=== PATIENT | female | born 2000 | race American Indian/Alaskan Native ===

== ENCOUNTER 2020-05-02 07:55 | Emergency (ER) | payer SELFPAY ==
[2020-05-02 08:03] VITALS: BP 124/80
--- NOTE | 2020-05-02 08:39 | Emergency Department Report ---
ED ENT HPI - General Chief complaint: Sore Throat Stated complaint: SWOLLEN THROAT Time Seen by Provider: 05/02/20 08:22 Source: patient Mode of arrival: Ambulatory Limitations: No Limitations - History of Present Illness Initial comments: This is a 19-year-old female nontoxic, well nourished in appearance, no acute signs of distress presents to the ED with c/o of sore throat. Patient describes sore throat as swallowing razer blades. Patient denies any fever, chills, headache, stiff neck, nausea, vomiting, chest pain, shortness of breath, numbness or tingling. Patient denies any drooling or hoarseness. Patient denies any allergies or significant past medical history. MD complaint: sore throat -: days(s) Location: throat Severity: mild Severity scale (0 -10): 8 Quality: aching Consistency: constant Improves with: none Worsens with: swallowing Associated Symptoms: pain with swallowing, sore throat. denies: fever, cough, gum swelling, toothache, tinnitus, hearing loss, discharge from ear, rhinorrhea - Related Data Previous Rx's Medication Instructions Recorded Last Taken Type Ibuprofen [Motrin] 600 mg PO Q8H PRN #30 tablet 01/14/20 Unknown Rx Ondansetron [Zofran Odt] 4 mg PO Q6HR PRN #20 tab.rapdis 01/14/20 Unknown Rx cephALEXin [Keflex] 500 mg PO Q8HR #30 cap 01/14/20 Unknown Rx Amoxicillin [Amoxicillin TAB] 875 mg PO BID #20 tablet 05/02/20 Unknown Rx Allergies Allergy/AdvReac Type Severity Reaction Status Date / Time aloe vera Allergy Hives Verified 01/14/20 01:34 ED Dental HPI - General Chief complaint: Sore Throat Stated complaint: SWOLLEN THROAT Time Seen by Provider: 05/02/20 08:22 Source: patient Mode of arrival: Ambulatory Limitations: No Limitations - Related Data Previous Rx's Medication Instructions Recorded Last Taken Type Ibuprofen [Motrin] 600 mg PO Q8H PRN #30 tablet 01/14/20 Unknown Rx Ondansetron [Zofran Odt] 4 mg PO Q6HR PRN #20 tab.rapdis 01/14/20 Unknown Rx cephALEXin [Keflex] 500 mg PO Q8HR #30 cap 01/14/20 Unknown Rx Amoxicillin [Amoxicillin TAB] 875 mg PO BID #20 tablet 05/02/20 Unknown Rx Allergies Allergy/AdvReac Type Severity Reaction Status Date / Time aloe vera Allergy Hives Verified 01/14/20 01:34 ED Review of Systems ROS: Stated complaint: SWOLLEN THROAT Other details as noted in HPI Comment: All other systems reviewed and negative Constitutional: denies: chills, fever Eyes: denies: eye pain, eye discharge, vision change ENT: throat pain. denies: ear pain Respiratory: denies: cough, shortness of breath, wheezing Cardiovascular: denies: chest pain, palpitations Endocrine: no symptoms reported Gastrointestinal: denies: abdominal pain, nausea, diarrhea Genitourinary: denies: urgency, dysuria, discharge Musculoskeletal: denies: back pain, joint swelling, arthralgia Skin: denies: rash, lesions Neurological: denies: headache, weakness, paresthesias Psychiatric: denies: anxiety, depression Hematological/Lymphatic: denies: easy bleeding, easy bruising ED Past Medical Hx - Past Medical History Previous Medical History?: No - Surgical History Past Surgical History?: No - Social History Smoking Status: Never Smoker Substance Use Type: Marijuana - Medications Home Medications: Home Medications Medication Instructions Recorded Confirmed Last Taken Type Ibuprofen [Motrin] 600 mg PO Q8H PRN #30 tablet 01/14/20 Unknown Rx Ondansetron [Zofran Odt] 4 mg PO Q6HR PRN #20 tab.rapdis 01/14/20 Unknown Rx cephALEXin [Keflex] 500 mg PO Q8HR #30 cap 01/14/20 Unknown Rx Amoxicillin [Amoxicillin TAB] 875 mg PO BID #20 tablet 05/02/20 Unknown Rx ED Physical Exam - General Limitations: No Limitations General appearance: alert, in no apparent distress - Head Head exam: Present: atraumatic, normocephalic - Eye Eye exam: Present: normal appearance - Expanded ENT Exam Expanded Ear exam: Present: normal external inspection Mouth exam: Present: normal external inspection, tongue normal. Absent: drooling, trismus, muffled voice Teeth exam: Present: normal inspection Throat exam: Positive: tonsillar erythema, other (uvula midline). Negative: tonsillomegaly, tonsillar exudate, R peritonsillar mass, L peritonsillar mass - Neck Neck exam: Present: normal inspection, full ROM. Absent: tenderness, meningismus, lymphadenopathy - Respiratory Respiratory exam: Absent: respiratory distress - Cardiovascular Cardiovascular Exam: Present: regular rate - Extremities Exam Extremities exam: Present: full ROM - Back Exam Back exam: Present: full ROM - Neurological Exam Neurological exam: Present: alert, oriented X3, normal gait - Psychiatric Psychiatric exam: Present: normal affect, normal mood - Skin Skin exam: Present: warm, dry, intact, normal color. Absent: rash ED Course Vital Signs 05/02/20 07:59 Temperature 98.5 F Pulse Rate 98 H Respiratory 16 Rate Blood Pressure 124/80 O2 Sat by Pulse 98 Oximetry - Reevaluation(s) Reevaluation #1: 05/02/20 08:37 Patient is speaking in full sentences with no signs of distress noted. ED Medical Decision Making - Medical Decision Making Vital signs are stable. Patient was examined by me patient is stable. Patient was instructed to follow-up with a primary care doctor in 3-5 days or if symptoms worsen and continue return to emergency room as soon as possible. At time of discharge, the patient does not seem toxic or ill in appearance. No acute signs of distress noted. Patient agrees to discharge treatment plan of care. No further questions noted by the patient. Critical care attestation.: If time is entered above; I have spent that time in minutes in the direct care of this critically ill patient, excluding procedure time. ED Disposition Clinical Impression: Pharyngitis Qualifiers: Pharyngitis/tonsillitis etiology: unspecified etiology Qualified Code(s): J02.9 - Acute pharyngitis, unspecified Disposition: DC- TO HOME OR SELFCARE Is pt being admited?: No Does the pt Need Aspirin: No Condition: Stable Instructions: Pharyngitis, [id number] Additional Instructions: Follow-up with a primary care doctor in 3-5 days or if symptoms worsen and continue return to emergency room as soon as possible. Prescriptions: Amoxicillin [Amoxicillin TAB] 875 mg PO BID #20 tablet Referrals: PRIMARY CAREMD [Referring] - 3-5 Days CLEMENCIA MUNGUIA MD [Staff Physician] - 3-5 Days Forms: Work/School Release Form(ED)
== END 2020-05-02 08:45 | disposition home or self-care (01) ==
LOC: ED 07:55
DX: J02.9 Acute pharyngitis, unspecified (principal); F12.90 Cannabis use, unspecified, uncomplicated; Z79.899 Other long term (current) drug therapy; Z91.048 Other nonmedicinal substance allergy status
CPT/HCPCS: 99281

== ENCOUNTER 2020-05-04 10:19 | Emergency (ER) | payer SELFPAY ==
[2020-05-04 11:04] VITALS: BP 117/82
[2020-05-04] MEDS ORDERED: PENICILLIN G BENZATHINE 1.2 MILLION UNIT/2 ML INJ IM ONE (12:37)
[2020-05-04] MEDS ORDERED: dexAMETHasone 20 MG/5 ML VIAL IM ONE (12:37)
--- NOTE | 2020-05-04 12:38 | Emergency Department Report ---
ED ENT HPI - General Chief complaint: Sore Throat Stated complaint: EAR BLEEDING/SOB/THROAT Time Seen by Provider: 05/04/20 12:28 Source: patient Mode of arrival: Ambulatory Limitations: No Limitations - History of Present Illness Initial comments: Patient is a 19-year-old female presents emergency room with complaints of a sore throat that began a week ago. She has associated pain with swallowing but is still able to tolerate p.o. intake. she was evaluated in the emergency department 2 days ago and started on amoxicillin but she states that it is not improving her symptoms. She states that the swelling feels worse. She states that she is also been having some discomfort in the right ear and feels like the ear is bleeding but she has been cleaning her ears with Q-tips. She denies any fever, vomiting, diarrhea, cough, shortness of breath. No past medical history. No allergies to medications. Last menstrual cycle last month. She denies any abdominal pain or vaginal bleeding. - Related Data Previous Rx's Medication Instructions Recorded Last Taken Type Ibuprofen [Motrin] 600 mg PO Q8H PRN #30 tablet 01/14/20 Unknown Rx Ondansetron [Zofran Odt] 4 mg PO Q6HR PRN #20 tab.rapdis 01/14/20 Unknown Rx cephALEXin [Keflex] 500 mg PO Q8HR #30 cap 01/14/20 Unknown Rx Amoxicillin [Amoxicillin TAB] 875 mg PO BID #20 tablet 05/02/20 Unknown Rx Amoxicillin/Potassium Clav 1 each PO BID 10 Days #20 tablet 05/04/20 Unknown Rx [Augmentin 875-125 Tablet] Loratadine [Claritin] 10 mg PO DAILY #30 tablet 05/04/20 Unknown Rx Nystas/Diphen/Xyl Visc/Mylanta 30 ml MM Q4H PRN #300 ml 05/04/20 Unknown Rx [Magic Mouthwash] Allergies Allergy/AdvReac Type Severity Reaction Status Date / Time aloe vera Allergy Hives Verified 01/14/20 01:34 ED Dental HPI - General Chief complaint: Sore Throat Stated complaint: EAR BLEEDING/SOB/THROAT Time Seen by Provider: 05/04/20 12:28 Source: patient Mode of arrival: Ambulatory Limitations: No Limitations - Related Data Previous Rx's Medication Instructions Recorded Last Taken Type Ibuprofen [Motrin] 600 mg PO Q8H PRN #30 tablet 01/14/20 Unknown Rx Ondansetron [Zofran Odt] 4 mg PO Q6HR PRN #20 tab.rapdis 01/14/20 Unknown Rx cephALEXin [Keflex] 500 mg PO Q8HR #30 cap 01/14/20 Unknown Rx Amoxicillin [Amoxicillin TAB] 875 mg PO BID #20 tablet 05/02/20 Unknown Rx Amoxicillin/Potassium Clav 1 each PO BID 10 Days #20 tablet 05/04/20 Unknown Rx [Augmentin 875-125 Tablet] Loratadine [Claritin] 10 mg PO DAILY #30 tablet 05/04/20 Unknown Rx Nystas/Diphen/Xyl Visc/Mylanta 30 ml MM Q4H PRN #300 ml 05/04/20 Unknown Rx [Magic Mouthwash] Allergies Allergy/AdvReac Type Severity Reaction Status Date / Time aloe vera Allergy Hives Verified 01/14/20 01:34 ED Review of Systems ROS: Stated complaint: EAR BLEEDING/SOB/THROAT Other details as noted in HPI Comment: All other systems reviewed and negative ED Past Medical Hx - Past Medical History Previous Medical History?: No - Surgical History Past Surgical History?: No - Social History Smoking Status: Never Smoker Substance Use Type: None - Medications Home Medications: Home Medications Medication Instructions Recorded Confirmed Last Taken Type Ibuprofen [Motrin] 600 mg PO Q8H PRN #30 tablet 01/14/20 Unknown Rx Ondansetron [Zofran Odt] 4 mg PO Q6HR PRN #20 tab.rapdis 01/14/20 Unknown Rx cephALEXin [Keflex] 500 mg PO Q8HR #30 cap 01/14/20 Unknown Rx Amoxicillin [Amoxicillin TAB] 875 mg PO BID #20 tablet 05/02/20 Unknown Rx Amoxicillin/Potassium Clav 1 each PO BID 10 Days #20 tablet 05/04/20 Unknown Rx [Augmentin 875-125 Tablet] Loratadine [Claritin] 10 mg PO DAILY #30 tablet 05/04/20 Unknown Rx Nystas/Diphen/Xyl Visc/Mylanta 30 ml MM Q4H PRN #300 ml 05/04/20 Unknown Rx [Magic Mouthwash] ED Physical Exam - General Limitations: No Limitations General appearance: alert, in no apparent distress - Head Head exam: Present: atraumatic, normocephalic - Eye Eye exam: Present: normal appearance - ENT ENT exam: Present: mucous membranes moist, TM's normal bilaterally, normal external ear exam, other (bilateral tonsillar hypertrophy with exudates, uvula is midline, no uvular edema or devation, no trismus, no tongue elevation, no muffled voice) - Neck Neck exam: Present: lymphadenopathy (small anterior cervical LAD bilaterally) - Respiratory Respiratory exam: Present: normal lung sounds bilaterally. Absent: respiratory distress, wheezes, rales, rhonchi, stridor, chest wall tenderness, accessory muscle use, decreased breath sounds, prolonged expiratory - Cardiovascular Cardiovascular Exam: Present: regular rate, normal rhythm, normal heart sounds. Absent: systolic murmur, diastolic murmur, rubs, gallop - Neurological Exam Neurological exam: Present: alert, oriented X3 - Psychiatric Psychiatric exam: Present: normal affect, normal mood - Skin Skin exam: Present: warm, dry, intact ED Course Vital Signs 05/04/20 11:03 Temperature 99.4 F Pulse Rate 88 Respiratory 18 Rate Blood Pressure 117/82 [Left] O2 Sat by Pulse 99 Oximetry ED Medical Decision Making - Medical Decision Making Patient is a 19-year-old female presents emergency room with complaints of a sore throat that began a week ago. She has associated pain with swallowing but is still able to tolerate p.o. intake. she was evaluated in the emergency department 2 days ago and started on amoxicillin but she states that it is not improving her symptoms. She states that the swelling feels worse. She states that she is also been having some discomfort in the right ear and feels like the ear is bleeding but she has been cleaning her ears with Q-tips. She denies any fever, vomiting, diarrhea, cough, shortness of breath. No past medical history. No allergies to medications. Last menstrual cycle last month. She denies any abdominal pain or vaginal bleeding. vitals are normal. on exam:bilateral tonsillar hypertrophy with exudates, uvula is midline, no uvular edema or devation, no trismus, no tongue elevation, no muffled voice, small anterior cervical LAD bilaterally, normal TMs and canals bilaterally. Examination appears consistent with tonsillitis. No signs of peritonsillar abscess at this time. Patient given IM dexamethasone and penicillin G benzathine while in the emergency department. Patient given prescription for Augmentin, Claritin, Magic mouthwash. Advised patient Please stop taking amoxicillin and begin taking Augmentin. Please use warm salt water gargles 3 times a day. Throw away your toothbrush. Increase your fluid intake over the next several days. May alternate Tylenol or ibuprofen as needed for discomfort. May use [id number] throat spray or throat lozenges. Follow-up with your primary care doctor. Follow-up with a ENT doctor. Return to emergency room for any new or worsening symptoms. Critical care attestation.: If time is entered above; I have spent that time in minutes in the direct care of this critically ill patient, excluding procedure time. ED Disposition Clinical Impression: Tonsillitis Disposition: - TO HOME OR SELFCARE Is pt being admited?: No Does the pt Need Aspirin: No Condition: Stable Instructions: Tonsillitis Additional Instructions: Please stop taking amoxicillin and begin taking Augmentin. Please use warm salt water gargles 3 times a day. Throw away your toothbrush. Increase your fluid intake over the next several days. May alternate Tylenol or ibuprofen as needed for discomfort. May use [id number] throat spray or throat lozenges. Follow-up with your primary care doctor. Follow-up with a ENT doctor. Return to emergency room for any new or worsening symptoms. Prescriptions: Amoxicillin/Potassium Clav [Augmentin 875-125 Tablet] 1 each PO BID 10 Days #20 tablet Loratadine [Claritin] 10 mg PO DAILY #30 tablet Nystas/Diphen/Xyl Visc/Mylanta [Magic Mouthwash] 30 ml MM Q4H PRN #300 ml PRN Reason: sore throat Referrals: CLEMENCIA MUNGUIA MD [Staff Physician] - 2-3 Days SEBAS HAINES MD [Staff Physician] - 2-3 Days Time of Disposition: 12:42 Print Language: MOHAWK
== END 2020-05-04 13:11 | disposition home or self-care (01) ==
LOC: ED 10:19
DX: J03.90 Acute tonsillitis, unspecified (principal); Z79.1 Long term (current) use of non-steroidal anti-inflammatories (NSAID); Z79.2 Long term (current) use of antibiotics; Z79.899 Other long term (current) drug therapy
CPT/HCPCS: 96372; 99281; J0561; J1100

== ENCOUNTER 2020-11-07 16:57 | Emergency (ER) | payer SELFPAY ==
[2020-11-07] MEDS ORDERED: SODIUM CHLORIDE 0.9% 1000 ML 1,000 ML IV ONE (19:33)
[2020-11-07] MEDS ORDERED: ONDANSETRON 4 MG/2 ML INJ IV ONE (19:33)
[2020-11-07] MEDS ORDERED: MORPHINE 4 MG/1 ML INJ IV ONE (19:33)
[2020-11-07 20:18] LABS: Basophils % (Auto) 0.8 % (0.0-1.8); Eosinophils % (Auto) 0.4 % (0.0-4.3); Hematocrit 34.3 % (30.3-42.9); Hemoglobin 11.2 gm/dl (10.1-14.3); Lymphocytes # (Auto) 1.4 K/mm3 (1.2-5.4); Lymphocytes % (Auto) 29.2 % (13.4-35.0); Mean Corpuscular HGB Conc 33 % (30-34); Mean Corpuscular Volume 86 fl (79-97); Monocytes # (Auto) 0.4 K/mm3 (0.0-0.8); Monocytes % (Auto) 7.8 % (0.0-7.3); Platelet Count 276 K/mm3 (140-440); Red Blood Count 3.99 M/mm3 (3.65-5.03); Red Cell Distribution Width 13.5 % (13.2-15.2)
[2020-11-07 20:37] LABS: Blood Urea Nitrogen 9 mg/dL (7-17); Calcium 8.9 mg/dL (8.4-10.2); Hemolysis Index 8
[2020-11-07 20:40] LABS: BUN/Creatinine Ratio 15
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
[2020-11-07 23:47] VITALS: BP 115/78
== END 2020-11-07 23:54 | disposition home or self-care (01) ==
LOC: ED 16:57
DX: S16.1XXA Strain of muscle, fascia and tendon at neck level, initial encounter (principal); S39.012A Strain of muscle, fascia and tendon of lower back, initial encounter; S50.01XA Contusion of right elbow, initial encounter; S60.211A Contusion of right wrist, initial encounter; S00.83XA Contusion of other part of head, initial encounter; F17.200 Nicotine dependence, unspecified, uncomplicated; F12.90 Cannabis use, unspecified, uncomplicated; Z88.8 Allergy status to other drugs, medicaments and biological substances; Z79.899 Other long term (current) drug therapy; Y04.8XXA Assault by other bodily force, initial encounter; Y93.89 Activity, other specified; Y92.89 Other specified places as the place of occurrence of the external cause; Y99.8 Other external cause status
CPT/HCPCS: 36415; 70450; 70486; 71260; 72070; 72100; 72125; 73080; 73110; 74177; 80048; 82962; 84703; 85025; 96361; 96374; 96375; 99284; J2270; J2405; J7030; Q9967

== ENCOUNTER 2021-09-12 20:27 | Emergency (ER) | payer SELFPAY ==
[2021-09-12 20:43] VITALS: BP 112/67
[2021-09-13] MEDS: ACETAMINOPHEN 500 MG TAB PO ONE (03:37)
[2021-09-13] MEDS: FAMOTIDINE 20 MG TAB PO ONE (03:37)
[2021-09-13 03:43] LABS: Bilirubin,Urine NEG (Negative); Blood,Urine NEG (Negative); Color,Urine Yellow (Yellow); Mucus,Urine 3+ /HPF
[2021-09-13 04:34] LABS: Basophils % (Auto) 0.5 % (0.0-1.8); Eosinophils % (Auto) 0.3 % (0.0-4.3); Hematocrit 31.1 % (30.3-42.9); Hemoglobin 10.3 gm/dl (10.1-14.3); Lymphocytes # (Auto) 1.3 K/mm3 (1.2-5.4); Lymphocytes % (Auto) 19.9 % (13.4-35.0); Mean Corpuscular HGB Conc 33 % (30-34); Mean Corpuscular Volume 84 fl (79-97); Monocytes # (Auto) 0.4 K/mm3 (0.0-0.8); Monocytes % (Auto) 6.6 % (0.0-7.3); Platelet Count 246 K/mm3 (140-440); Red Cell Distribution Width 13.4 % (13.2-15.2)
[2021-09-13 04:58] LABS: Alanine Aminotransferase 10 units/L (7-56); Albumin 3.8 g/dL (3.9-5); Blood Urea Nitrogen 7 mg/dL (7-17); Calcium 8.7 mg/dL (8.4-10.2); Hemolysis Index 2
[2021-09-13 05:07] LABS: BUN/Creatinine Ratio 12
--- NOTE | 2021-09-13 06:13 | Emergency Department Report ---
ED Abdominal Pain HPI - General Chief Complaint: Abdominal Pain Stated Complaint: SOB/WEAKNESS/CHEST PAIN (9 WKS ) Source: patient Mode of arrival: Ambulatory Limitations: No Limitations - History of Present Illness Initial Comments: Patient is a A0 21-year-old -[place] female who is approximately 9 weeks gestation presents to the ED with complaint of acute onset persistent intermittent epigastric pain that radiates to the periumbilical area, and which gets worse with food radiating to the chest with a burning sensation for the last 1 week. Patient also complains of persistent nausea and vomiting. Patient denies vaginal bleeding, vaginal discharge, dysuria, urinary frequency and urgency, chest pain, shortness of breath, dizziness, syncope, fever, chills, cough, or low back pain. MD Complaint: abdominal pain (Epigastric pain ) -: Sudden, week(s) (1) Location: epigastric Radiation: none Migration to: no migration Severity: severe Severity scale (0 -10): 7 Quality: cramping, aching Improves With: nothing Worsens With: eating, vomiting Context: other (Approximately 9 weeks gestation) Associated Symptoms: denies other symptoms, nausea, anorexia. denies: vomiting, diarrhea, fever, chills, constipation, dysuria, hematemesis, hematochezia, melen a, hematuria, syncope - Related Data Previous Rx's Medication Instructions Recorded Last Taken Type Ibuprofen [Motrin] 600 mg PO Q8H PRN #30 tablet 01/14/20 Unknown Rx Ondansetron [Zofran Odt] 4 mg PO Q6HR PRN #20 tab.rapdis 01/14/20 Unknown Rx cephALEXin [Keflex] 500 mg PO Q8HR #30 cap 01/14/20 Unknown Rx Amoxicillin [Amoxicillin TAB] 875 mg PO BID #20 tablet 05/02/20 Unknown Rx Amoxicillin/Potassium Clav 1 each PO BID 10 Days #20 tablet 05/04/20 Unknown Rx [Augmentin 875-125 Tablet] Loratadine [Claritin] 10 mg PO DAILY #30 tablet 05/04/20 Unknown Rx Nystas/Diphen/Xyl Visc/Mylanta 30 ml MM Q4H PRN #300 ml 05/04/20 Unknown Rx [Magic Mouthwash] Cyclobenzaprine [Flexeril] 10 mg PO QHS PRN #10 tablet 11/07/20 Unknown Rx Naproxen 500 mg PO Q12H PRN #12 tablet 11/07/20 Unknown Rx Acetaminophen [Tylenol] 500 mg PO Q6HR PRN #30 tablet 09/13/21 Unknown Rx Famotidine [Pepcid] 20 mg PO BID #60 tablet 09/13/21 Unknown Rx Metoclopramide [Reglan] 10 mg PO Q8H PRN #30 tab 09/13/21 Unknown Rx cephALEXin [Keflex] 500 mg PO Q6HR #30 capsule 09/13/21 Unknown Rx Allergies Allergy/AdvReac Type Severity Reaction Status Date / Time aloe vera Allergy Hives Verified 01/14/20 01:34 ED Review of Systems ROS: Stated complaint: SOB/WEAKNESS/CHEST PAIN (9 WKS ) Other details as noted in HPI Constitutional: denies: chills, fever Eyes: denies: eye pain, eye discharge, vision change ENT: denies: ear pain, throat pain Respiratory: denies: cough, shortness of breath, wheezing Cardiovascular: denies: chest pain, palpitations Endocrine: no symptoms reported Gastrointestinal: abdominal pain (epigastric), nausea. denies: vomiting, diarrhea, constipation, hematemesis Genitourinary: denies: urgency, dysuria, frequency, hematuria, discharge, abnormal menses, dyspareunia Musculoskeletal: denies: back pain, joint swelling, arthralgia Skin: denies: rash, lesions Neurological: denies: headache, weakness, paresthesias Psychiatric: denies: anxiety, depression Hematological/Lymphatic: denies: easy bleeding, easy bruising ED Past Medical Hx - Social History Smoking Status: Never Smoker Substance Use Type: None - Medications Home Medications: Home Medications Medication Instructions Recorded Confirmed Last Taken Type Ibuprofen [Motrin] 600 mg PO Q8H PRN #30 tablet 01/14/20 Unknown Rx Ondansetron [Zofran Odt] 4 mg PO Q6HR PRN #20 tab.rapdis 01/14/20 Unknown Rx cephALEXin [Keflex] 500 mg PO Q8HR #30 cap 01/14/20 Unknown Rx Amoxicillin [Amoxicillin TAB] 875 mg PO BID #20 tablet 05/02/20 Unknown Rx Amoxicillin/Potassium Clav 1 each PO BID 10 Days #20 tablet 05/04/20 Unknown Rx [Augmentin 875-125 Tablet] Loratadine [Claritin] 10 mg PO DAILY #30 tablet 05/04/20 Unknown Rx Nystas/Diphen/Xyl Visc/Mylanta 30 ml MM Q4H PRN #300 ml 05/04/20 Unknown Rx [Magic Mouthwash] Cyclobenzaprine [Flexeril] 10 mg PO QHS PRN #10 tablet 11/07/20 Unknown Rx Naproxen 500 mg PO Q12H PRN #12 tablet 11/07/20 Unknown Rx Acetaminophen [Tylenol] 500 mg PO Q6HR PRN #30 tablet 09/13/21 Unknown Rx Famotidine [Pepcid] 20 mg PO BID #60 tablet 09/13/21 Unknown Rx Metoclopramide [Reglan] 10 mg PO Q8H PRN #30 tab 09/13/21 Unknown Rx cephALEXin [Keflex] 500 mg PO Q6HR #30 capsule 09/13/21 Unknown Rx ED Physical Exam - General Limitations: No Limitations General appearance: alert, in no apparent distress - Head Head exam: Present: atraumatic, normocephalic, normal inspection - Eye Eye exam: Present: normal appearance, PERRL, EOMI Pupils: Present: normal accommodation - ENT ENT exam: Present: normal exam, normal orophraynx, mucous membranes moist, TM's normal bilaterally, normal external ear exam - Neck Neck exam: Present: normal inspection, full ROM. Absent: tenderness - Respiratory Respiratory exam: Present: normal lung sounds bilaterally. Absent: respiratory distress, wheezes, rales, rhonchi, chest wall tenderness, accessory muscle use, decreased breath sounds, prolonged expiratory - Cardiovascular Cardiovascular Exam: Present: regular rate, normal rhythm, normal heart sounds. Absent: systolic murmur, diastolic murmur, rubs, gallop - GI/Abdominal GI/Abdominal exam: Present: soft, tenderness (Palpable mild epigastric tenderness), normal bowel sounds. Absent: guarding, rebound, rigid, hyperactive bowel sounds, hypoactive bowel sounds, organomegaly - Extremities Exam Extremities exam: Present: normal inspection, full ROM, normal capillary refill - Back Exam Back exam: Present: normal inspection, full ROM. Absent: tenderness, CVA tenderness (R), CVA tenderness (L), paraspinal tenderness, vertebral tenderness - Neurological Exam Neurological exam: Present: alert, oriented X3, CN II-XII intact, normal gait, reflexes normal - Psychiatric Psychiatric exam: Present: normal affect, normal mood - Skin Skin exam: Present: warm, dry, intact, normal color. Absent: rash ED Course Vital Signs 09/12/21 20:36 Temperature 98.9 F Pulse Rate 83 Respiratory 18 Rate Blood Pressure 112/67 O2 Sat by Pulse 100 Oximetry ED Medical Decision Making - Lab Data Result diagrams: 09/13/21 04:08 09/13/21 04:08 - Radiology Data Radiology results: report reviewed, image reviewed [address] [address] Ultrasound Report Signed Patient: PARTH GOODE MR#: [id number] : 2000 Acct:[id number] Age/Sex: 21 / F ADM Date: 09/12/21 Loc: ED Attending Dr: Ordering Physician: MAXIMUS TONEY Date of Service: 09/13/21 Procedure(s): US OB <= 14 weeks fetus Accession Number(s): [id number] cc: MAXIMUS TONEY ULTRASOUND OBSTETRIC Indication: abdominal pain - Findings: There is a single, living intrauterine . [place]-rump length = 2.8 cm = 9 weeks, 4 day(s). heart rate is 162 beats per minute. The ovaries are normal. There is no free pelvic fluid. There is a focal hypoechoic structure concerning for subchorionic hemorrhage measuring about 1.7 x 0.8 x 1.2 cm. Impression: Single, living intrauterine with estimated sonographic age of 9 weeks, 4 day(s). Focal subchorionic hemorrhage measuring 1.7 x 1.2 cm . Signer Name: Jacob Lux MD Signed: 09/13/2021 6:11 AM Workstation Name: [id number] Transcribed By: BC Dictated By: Jacob Lux MD Electronically Authenticated By: Jacob Lux MD Signed Date/Time: 09/13/21610 DD/ 7 TD/TT: Print - Medical Decision Making This is a A0 21-year-old -[place] female who is approximately 9 weeks gestation presents to the ED with complaint of acute onset persistent intermittent epigastric pain that radiates to the periumbilical area, and which gets worse with food radiating to the chest with a burning sensation for the last 1 week. Patient also complains of persistent nausea and vomiting. In the ED, patient is alert and oriented x3 and is not in any distress. Patient was treated in the ED for pain and was given antacids and antiemetics. Lab test results were reviewed and are all nonactionable, except for mild hyponatremia 132 mmol/L. The hCG quant is [id number] and urinalysis showed mild urinary tract infection. Transvaginal ultrasound showed a single intrauterine of approximately 9 weeks and 4 days, and with a heart rate 162 bpm. There is also a small focal subchorionic hemorrhage measuring 1.7 cm x 1.2 cm. On reevaluation, patient's pain is well controlled medication. 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 - Differential Diagnosis Ectopic ; GERD, UTI; MUSCLE CRAMPS; Critical care attestation.: If time is entered above; I have spent that time in minutes in the direct care of this critically ill patient, excluding procedure time. ED Disposition Clinical Impression: Abdominal pain during in first trimester, Acute urinary tract infection GERD (gastroesophageal reflux disease) Qualifiers: Esophagitis presence: esophagitis presence not specified Qualified Code(s): K21.9 - Gastro-esophageal reflux disease without esophagitis Disposition: 01 HOME / SELF CARE / HOMELESS Is pt being admited?: No Does the pt Need Aspirin: No Condition: Stable Instructions: Abdominal Pain (ED), Heartburn, [id number], Gastroesophageal Reflux Disease, Adult, [id number], Abdominal Pain During , [id number], Urinary Tract Infection, Adult, [id number] Additional Instructions: All lab test results were reviewed and are all nonactionable except for mild hyponatremia and urinary tract infection in urinalysis. The hCG quant was [id number]. The transvaginal ultrasound showed a single, living intrauterine with estimated sonographic age of 9 weeks, 4 day(s) with a heart rate of 162 bpm and a focal subchorionic hemorrhage measuring 1.7 x 1.2 cm . 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 Return to the ED immediately if symptoms get worse. Prescriptions: Acetaminophen [Tylenol] 500 mg PO Q6HR PRN #30 tablet PRN Reason: Pain , Severe (7-10) cephALEXin [Keflex] 500 mg PO Q6HR #30 capsule Famotidine [Pepcid] 20 mg PO BID #60 tablet Metoclopramide [Reglan] 10 mg PO Q8H PRN #30 tab PRN Reason: Nausea Referrals: THADDEUS COCHRAN MD [Staff Physician] - 3-5 Days Time of Disposition: 06:13 Print Language: QATARI
--- NOTE | 2021-09-13 06:15 | Ultrasound Report ---
ULTRASOUND OBSTETRIC Indication: abdominal pain - Findings: There is a single, living intrauterine . [place]-rump length = 2.8 cm = 9 weeks, 4 day(s). heart rate is 162 beats per minute. The ovaries are normal. There is no free pelvic fluid. There is a focal hypoechoic structure concerning for subchorionic hemorrhage measuring about 1.7 x 0. 8 x 1.2 cm. Impression: Single, living intrauterine with estimated sonographic age of 9 weeks, 4 day(s). Focal subc horionic hemorrhage measuring 1.7 x 1.2 cm . Signer Name: Jacob Lux MD Signed: 09/13/2021 6:11 AM Workstation Name: [email or web address]
== END 2021-09-13 06:31 | disposition home or self-care (01) ==
LOC: ED 20:27
DX: O23.41 Unspecified infection of urinary tract in pregnancy, first trimester (principal); N39.0 Urinary tract infection, site not specified; O99.611 Diseases of the digestive system complicating pregnancy, first trimester; K21.9 Gastro-esophageal reflux disease without esophagitis; Z91.048 Other nonmedicinal substance allergy status; Z79.899 Other long term (current) drug therapy; Z3A.09 9 weeks gestation of pregnancy
CPT/HCPCS: 36415; 76801; 80053; 81001; 83690; 84702; 85025; 99284